=== PATIENT | female | born 2000 | race Caucasian/White ===

== ENCOUNTER 2018-04-20 12:32 | Emergency (ER) | payer SELFPAY ==
[2018-04-20] MEDS ORDERED: HYDROcodone/ACETAMIN 5-325 MG* 1 TAB PO ONE (13:17)
[2018-04-20] MEDS ORDERED: Silver Sulfadiazine 1%* 20 GM TOPICAL ONE (13:40)
[2018-04-20 14:17] VITALS: BP 126/64
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
== END 2018-04-20 14:16 | disposition home or self-care (01) ==
LOC: ED 12:32
DX: T21.11XA Burn of first degree of chest wall, initial encounter (principal); T20.17XA Burn of first degree of neck, initial encounter; T20.13XA Burn of first degree of chin, initial encounter; T31.0 Burns involving less than 10% of body surface; Y27.2XXA Contact with hot fluids, undetermined intent, initial encounter; Y93.9 Activity, unspecified; Y92.9 Unspecified place or not applicable; F41.9 Anxiety disorder, unspecified; F32.9 Major depressive disorder, single episode, unspecified; Z91.040 Latex allergy status
CPT/HCPCS: 16000; 99282; A9270-GY

== ENCOUNTER 2018-09-26 08:51 | Emergency (ER) | payer BC ==
[2018-09-26 09:03] VITALS: BP 139/62
[2018-09-26 09:23] LABS: Influenza A Molecular NEGATIVE (Negative); Influenza B Molecular NEGATIVE (Negative)
--- NOTE | 2018-09-26 09:34 | UC ---
FLU HPI - HPI Summary HPI Summary: was sick with URI 3 weeks ago, seemed to resolve with rest , over past 1-2 day sshe has felt "awful" with fatigue, body aches, cough, nasal congestion, ear pain - History of Current Complaint Chief Complaint: UCRespiratory Stated Complaint: FLU SYMPTOMS Time Seen by Provider: 09/26/18 08:57 Hx Obtained From: Patient Hx Last Menstrual Period: 09/20/18 ?: No Onset/Duration: Sudden Onset - yesterday Severity Currently: Moderate Severity Initially: Moderate Pain Intensity: 5 Associated Signs & Symptoms: Positive: Cough, Nasal Congestion - Allergy/Home Medications Allergies/Adverse Reactions: Allergies Allergy/AdvReac Type Severity Reaction Status Date / Time latex Allergy Unknown Verified 09/26/18 08:58 Reaction Details PMH/Surg Hx/FS Hx/Imm Hx Previously Healthy: Yes Respiratory History: Asthma - Surgical History Surgical History: Yes Surgery Procedure, Year, and Place: Appendectomy. Tonsillectomy and Adenoidectomy - Family History Known Family History: Positive: None Negative: Cardiac Disease, Hypertension - Social History Occupation: Employed Full-time - [employer] Lives: With Family Alcohol Use: Rare Substance Use Type: Marijuana Substance Use Comment - Amount & Last Used: 04/20/18 Smoking Status (MU): Never Smoked Tobacco Type: eCigarettes Have You Smoked in the Last Year: No - Immunization History Most Recent Influenza Vaccination: 06/04/15 Most Recent Pneumonia Vaccination: never Review of Systems All Other Systems Reviewed And Are Negative: Yes Constitutional: Positive: Chills, Fatigue Skin: Positive: Negative Eyes: Positive: Negative Respiratory: Positive: Cough Cardiovascular: Positive: Negative Gastrointestinal: Positive: Negative. Negative: Vomiting, Diarrhea, Nausea Neurovascular: Positive: Negative Neurological: Positive: Negative Psychological: Positive: Negative Is Patient Immunocompromised?: No Physical Exam Triage Information Reviewed: Yes Appearance: No Pain Distress, Well-Nourished Vital Signs: Initial Vital Signs Temp 98.6 F 09/26/18 08:59 Pulse 92 09/26/18 08:59 Resp 18 09/26/18 08:59 BP 139/62 09/26/18 08:59 Pulse Ox 100 09/26/18 08:59 Vital Signs Reviewed: Yes Eyes: Positive: Conjunctiva Clear ENT: Positive: Nasal congestion, TMs normal Neck exam: Normal Neck: Positive: Supple, Nontender, No Lymphadenopathy Respiratory: Positive: Wheezing - mild L side. Negative: Respiratory distress Cardiovascular Exam: Normal Cardiovascular: Positive: RRR Neurological Exam: Normal Psychological Exam: Normal Skin Exam: Normal Skin: Negative: Rashes Flu Course/Dx - Differential Dx/Diagnosis Differential Diagnosis/HQI/PQRI: Bronchitis, Influenza, Pneumonia, Upper Respiratory Infection Provider Diagnosis: Bronchitis Discharge - Sign-Out/Discharge Documenting (check all that apply): Patient Departure All imaging exams completed and their final reports reviewed: No Studies - Discharge Plan Condition: Good Disposition: HOME Prescriptions: Azithromycin TAB* [Zithromax TAB (Z-GLENROY) 250 mg #6 tabs] 2 tab PO .TODAY, THEN 1 DAILY #1 glenroy Patient Education Materials: Acute Bronchitis (ED) Forms: *Work Release Referrals: Shabnam Sanz MD [Primary Care Provider] - 2 Days (if no better) Additional Instructions: drink plenty of fluids and rest Tylenol or ibuprofen as directed for pain and fever use your nebulizer 3-4 times a day for wheezing - Billing Disposition and Condition Condition: GOOD Disposition: Home - Attestation Statements Provider Attestation: I was available for consult. This patient was seen by the [facility]LENA. The patient was not presented to , seen by or examined by ny -Chasity Martinez MD
== END 2018-09-26 09:45 | disposition home or self-care (01) ==
LOC: UCEAST 08:51
DX: J45.909 Unspecified asthma, uncomplicated (principal); Z91.040 Latex allergy status
CPT/HCPCS: 99212; G0463

== ENCOUNTER 2019-10-19 08:58 | Emergency (ER) | payer BC, MEDICAID ==
[2019-10-19 09:16] VITALS: BP 119/78
--- NOTE | 2019-10-19 09:59 | UC ---
Respiratory Complaint HPI - HPI Summary HPI Summary: 18-year-old female who has had cold symptoms and wheezing for the past 2 days. She is an asthmatic and has run out of her albuterol inhaler. She states she's had a productive cough of green sputum the past 2 days but no fever. She also has a spacer at home however it's broken. She states usually a nebulizer treatment is well clears her up however she does not have a nebulizer at home. She prefers not to be put on prednisone because of side effects she experiences from it. - History of Current Complaint Chief Complaint: UCRespiratory Stated Complaint: COUGH CONGESTION Time Seen by Provider: 10/19/19 09:58 Hx Obtained From: Patient Hx Last Menstrual Period: 10/09/19 ?: No Onset/Duration: Gradual Onset, Lasting Days, Still Present Timing: Intermittent Episodes Severity Initially: Mild Severity Currently: Mild Pain Intensity: 0 Character: Cough: Productive - Productive cough of green sputum the past 2 days , mostly in the morning. Aggravating Factors: Deep Breaths Associated Signs And Symptoms: Positive: Wheezing, Nasal Congestion - Allergies/Home Medications Allergies/Adverse Reactions: Allergies Allergy/AdvReac Type Severity Reaction Status Date / Time latex Allergy Unknown Verified 10/19/19 09:11 Reaction Details Home Medications: Home Medications Albuterol [Proair Hfa] 2 puff IN Q4H PRN #2 inh 05/15/14 [Clinic Confirmed 10/18] Albuterol 2.5MG/3ML (0.083%)* [Ventolin 2.5 MG/3 ML NEB.SIDNEY*] 2.5 mg INH Q4H PRN #30 appful 10/19/19 [Rx] Loratadine 1 tab PO DAILY WITH MEAL 10/19/19 [History Confirmed 10/19/19] PMH/Surg Hx/FS Hx/Imm Hx Previously Healthy: Yes Respiratory History: Asthma - Surgical History Surgical History: Yes Surgery Procedure, Year, and Place: Appendectomy. Tonsillectomy and Adenoidectomy - Family History Known Family History: Positive: None Negative: Cardiac Disease, Hypertension - Social History Occupation: Employed Full-time Alcohol Use: Rare Substance Use Type: None Substance Use Comment - Amount & Last Used: 04/20/18 Smoking Status (MU): Light Every Day Tobacco Smoker Type: eCigarettes Have You Smoked in the Last Year: No - Immunization History Most Recent Influenza Vaccination: 06/04/15 Most Recent Pneumonia Vaccination: never Review of Systems All Other Systems Reviewed And Are Negative: Yes Respiratory: Positive: Cough - Occasional wheezing with productive cough of greenish sputum intermittently. Is Patient Immunocompromised?: No Physical Exam Triage Information Reviewed: Yes Appearance: Well-Appearing, No Pain Distress, Well-Nourished Vital Signs: Initial Vital Signs Temp 98.5 F 10/19/19 09:13 Pulse 80 10/19/19 09:13 Resp 18 10/19/19 09:13 BP 119/78 10/19/19 09:13 Pulse Ox 100 10/19/19 09:13 Vital Signs Reviewed: Yes Eyes: Positive: Conjunctiva Clear ENT: Positive: Pharynx normal, TMs normal, Uvula midline Neck: Positive: Supple, Nontender, No Lymphadenopathy Respiratory: Positive: No respiratory distress, No accessory muscle use, Rhonchi , Wheezing - Scattered rhonchi in mild wheezing throughout with forced expiration. No distress Cardiovascular: Positive: RRR, No Murmur, Pulses Normal, Brisk Capillary Refill Musculoskeletal Exam: Normal Neurological Exam: Normal Psychological Exam: Normal Skin Exam: Normal Respiratory Course/Dx - Course Course Of Treatment: Patient is comfortable here. She received a DuoNeb treatment with complete clearing of her lung smyth. She was feeling much better and feeling like she can take a full breath. I refilled her albuterol inhaler and spacer which were given here. I wrote a prescription for a nebulizer for her at home to use every 4-6 hours as needed for wheezing. She preferred not to have prednisone at this time. I don't believe she needs an antibiotic at this time however if she has any worsening symptoms, which were reviewed with her, then she is to get rechecked. Patient is agreeable to this plan of action. - Differential Dx/Diagnosis Provider Diagnosis: Bronchitis Discharge ED - Sign-Out/Discharge Documenting (check all that apply): Patient Departure All imaging exams completed and their final reports reviewed: No Studies - Discharge Plan Condition: Good Disposition: HOME Prescriptions: Albuterol 2.5MG/3ML (0.083%)* [Ventolin 2.5 MG/3 ML NEB.SIDNEY*] 2.5 mg INH Q4H PRN #30 appful PRN Reason: Wheezing Patient Education Materials: Acute Bronchitis (ED) Referrals: [facility] [Outside] No Primary Care Phys,NOPCP [Primary Care Provider] - Additional Instructions: Increase fluids, use your albuterol inhaler with the spacer 2 puffs every 4-6 hours as needed. At home use her nebulizer every 4-6 hours as needed. Recheck [facility] or here if you start running a fever or having any worsening symptoms. - Billing Disposition and Condition Condition: GOOD Disposition: Home
[2019-10-19] MEDS ORDERED: Albuterol/Ipratropium NEB.SOL* Albuterol 2.5 MG/Ipratropium 0.5 MG 3 ML INH ONE (10:05)
[2019-10-19] MEDS ORDERED: Albuterol HFA INHALER* 8 gm MDI INH ONE (10:26)
== END 2019-10-19 10:35 | disposition home or self-care (01) ==
LOC: UCEAST 08:58
DX: J45.909 Unspecified asthma, uncomplicated (principal); F17.290 Nicotine dependence, other tobacco product, uncomplicated; Z91.040 Latex allergy status
CPT/HCPCS: 99212; A9270-GY; G0463